=== PATIENT | male | born 1975 ===

== ENCOUNTER 2018-05-11 01:17 | Emergency (ER) | payer OTHER ==
[~2018-05-11] VITALS: Ht 177.8 cm; Wt 81.6 kg
[2018-05-11] MEDS ORDERED: NS IV 1000 ML 1,000 ML IV STA (01:33)
[2018-05-11] MEDS ORDERED: fentaNYL INJECTION 100 MCG/2 ML AMP IVP STA (01:33)
[2018-05-11 01:39] LABS: BASOPHILS % (AUTO) 0 % (0-10); EOSINOPHILS % (AUTO) 0 % (0-10); HEMATOCRIT 43 % (40-54); HEMOGLOBIN 15.5 G/DL (13.3-17.7); LYMPHOCYTES # (AUTO) 1.4 X 10^3 (1.0-4.0); LYMPHOCYTES % (AUTO) 13 % (12-44); MEAN CORPUSCULAR HEMOGLOBIN 31 PG (25-34); MEAN CORPUSCULAR HGB CONC 37 G/DL (32-36); MEAN CORPUSCULAR VOLUME 85 FL (80-99); MONOCYTES # (AUTO) 0.4 X 10^3 (0.0-1.0); MONOCYTES % (AUTO) 4 % (0-12); NEUTROPHILS # (AUTO) 9.4 X 10^3 (1.8-7.8); NEUTROPHILS % (AUTO) 84 % (42-75); PLATELET COUNT 223 10^3/uL (130-400); RED BLOOD COUNT 5.02 10^6/uL (4.35-5.85); RED CELL DISTRIBUTION WIDTH 13.6 % (10.0-14.5); WHITE BLOOD COUNT 11.3 10^3/uL (4.3-11.0)
--- NOTE | 2018-05-11 01:40 | ED Abdominal Pain ---
General Stated Complaint: ABD PAIN,VOMITING,SOB Source of Information: Patient Exam Limitations: No Limitations History of Present Illness Date Seen by Provider: May 11, 2018 Time Seen by Provider: 01:23 Initial Comments Acute onset of abdominal pain epigastric it is associated with nausea and vomiting. Onset about 6 hours ago. He feels a little short of breath or states that it hurts when he takes a deep breath. No report of blood in the vomit or stool. Denies diarrhea. Never had anything like this before. Onset after eating. Timing/Duration: 4-6 Hours Severity/Quality: Moderate Location: Epigastric Radiation: RUQ, LUQ Activities at Onset: None Modifying Factors: Worsens With Eating Associated Symptoms: No Back Pain, No Chest Pain, No Fever/Chills; Nausea/ Vomiting, Shortness of Air; No Swelling/Mass in Abdomen, No Weakness Allergies and Home Medications Allergies Coded Allergies: No Known Drug Allergies (Unverified , 05/11/18) Patient Home Medication List Home Medication List Reviewed: Yes Review of Systems Constitutional: see HPI; No chills, No fever EENTM: No Symptoms Reported Respiratory: See HPI; Denies Wheezing Cardiovascular: No Symptoms Reported Gastrointestinal: See HPI, Abdominal Pain; Denies Diarrhea; Vomiting Genitourinary: No Symptoms Reported Musculoskeletal: no symptoms reported Skin: no symptoms reported All Other Systems Reviewed Negative Unless Noted: Yes Past Qepbjdz-Psvwfk-Sjcaqf Hx Past Med/Social Hx: Reviewed Nursing Past Med/Soc Hx Patient Social History Alcohol Use: Denies Use Recreational Drug Use: No Smoking Status: Never a Smoker Recent Foreign Travel: No Contact w/Someone Who Travel: No Past Medical History Surgeries: No Respiratory: No Cardiac: No Neurological: No Genitourinary: No Gastrointestinal: No Musculoskeletal: No Endocrine: No Family Medical History Reviewed Nursing Family Hx No Pertinent Family Hx Physical Exam Vital Signs Vital Signs - First Documented 05/11/18 01:38 Temp 97.7 Pulse 68 Resp 20 B/P (MAP) 144/93 (110) Pulse Ox 97 O2 Delivery Nasal Cannula Capillary Refill : Height/Weight/BMI Height: '" Weight: lbs. oz. kg; BMI Method: General Appearance: WD/WN, no apparent distress HEENT: PERRL/EOMI, pharynx normal Neck: full range of motion, supple Respiratory: lungs clear, normal breath sounds Cardiovascular: regular rate, rhythm, no murmur Gastrointestinal: normal bowel sounds, soft; No guarding, No rebound; tenderness (epigastric) Extremities: non-tender, normal inspection Back: normal inspection, no CVA tenderness, no vertebral tenderness Neurologic/Psychiatric: alert, oriented x 3 Skin: normal color, warm/dry Progress/Results/Core Measures Results/Orders Lab Results Laboratory Tests Test 05/11/18 01:30 05/11/18 02:22 Range/Units White Blood Count 11.3 H 4.3-11.0 10^3/uL Red Blood Count 5.02 4.35-5.85 10^6/uL Hemoglobin 15.5 13.3-17.7 G/DL Hematocrit 43 40-54 % Mean Corpuscular Volume 85 80-99 FL Mean Corpuscular Hemoglobin 31 25-34 PG Mean Corpuscular Hemoglobin Concent 37 H 32-36 G/DL Red Cell Distribution Width 13.6 10.0-14.5 % Platelet Count 223 130-400 10^3/uL Mean Platelet Volume 10.0 7.4-10.4 FL Neutrophils (%) (Auto) 84 H 42-75 % Lymphocytes (%) (Auto) 13 12-44 % Monocytes (%) (Auto) 4 0-12 % Eosinophils (%) (Auto) 0 0-10 % Basophils (%) (Auto) 0 0-10 % Neutrophils # (Auto) 9.4 H 1.8-7.8 X 10^3 Lymphocytes # (Auto) 1.4 1.0-4.0 X 10^3 Monocytes # (Auto) 0.4 0.0-1.0 X 10^3 Eosinophils # (Auto) 0.0 0.0-0.3 10^3/uL Basophils # (Auto) 0.0 0.0-0.1 10^3/uL Sodium Level 140 135-145 MMOL/L Potassium Level 3.7 3.6-5.0 MMOL/L Chloride Level 107 98-107 MMOL/L Carbon Dioxide Level 21 21-32 MMOL/L Anion Gap 12 5-14 MMOL/L Blood Urea Nitrogen 13 7-18 MG/DL Creatinine 1.06 0.60-1.30 MG/DL Estimat Glomerular Filtration Rate > 60 BUN/Creatinine Ratio 12 Glucose Level 162 H 70-105 MG/DL Calcium Level 9.9 8.5-10.1 MG/DL Total Bilirubin 0.7 0.1-1.0 MG/DL Aspartate Amino Transf (AST/SGOT) 28 5-34 U/L Alanine Aminotransferase (ALT/SGPT) 58 H 0-55 U/L Alkaline Phosphatase 67 40-136 U/L C-Reactive Protein High Sensitivity 0.10 0.00-0.50 MG/DL Total Protein 8.1 6.4-8.2 GM/DL Albumin 4.8 H 3.2-4.5 GM/DL Amylase Level 91 25-125 U/L Lipase 28 8-78 U/L Urine Color YELLOW Urine Clarity CLEAR Urine pH 6.5 5-9 Urine Specific [place] 1.010 L 1.016-1.022 Urine Protein 2+ H NEGATIVE Urine Glucose (UA) NEGATIVE NEGATIVE Urine Ketones NEGATIVE NEGATIVE Urine Nitrite NEGATIVE NEGATIVE Urine Bilirubin NEGATIVE NEGATIVE Urine Urobilinogen NORMAL NORMAL MG/DL Urine Leukocyte Esterase NEGATIVE NEGATIVE Urine RBC (Auto) 1+ H NEGATIVE Urine RBC NONE /HPF Urine WBC NONE /HPF Urine Squamous Epithelial Cells RARE /HPF Urine Crystals NONE /LPF Urine Bacteria NEGATIVE /HPF Urine Casts NONE /LPF Urine Mucus NEGATIVE /LPF Urine Culture Indicated NO My Orders Orders - VANIA HDEZ MD Amylase (05/11/18 01:33) Cbc With Automated Diff (05/11/18 01:33) Comprehensive Metabolic Panel (05/11/18 01:33) Hs C Reactive Protein (05/11/18 01:33) Lipase (05/11/18 01:33) Ua Culture If Indicated (05/11/18 01:33) Ranitidine Injection (Zantac Injection) (05/11/18 01:45) Ns Iv 1000 Ml (Sodium Chloride 0.9%) (05/11/18 01:33) Saline Lock/Iv-Start (05/11/18 01:33) Ct Abdomen/Pelvis W (05/11/18 01:33) Fentanyl Injection (Sublimaze Injection (05/11/18 01:33) Iohexol Injection (Omnipaque 350 Mg/Ml 1 (05/11/18 02:00) Ns (Ivpb) (Sodium Chloride 0.9%) (05/11/18 02:00) Ketorolac Injection (Toradol Injection) (05/11/18 02:52) Lidocaine 2% Viscous 15 Ml (Xylocaine Vi (05/11/18 03:00) Antacid Suspension (Mylanta Suspension (05/11/18 03:00) Medications Given in ED Current Medications Medications Dose Ordered Sig/[place] Route Start Time Stop Time Status Last Admin Dose Admin Al Hydrox/Mg Hydrox/Simethicone 30 ml ONCE ONCE PO 05/11/18 03:00 05/11/18 03:01 DC 05/11/18 03:00 30 ML Iohexol 100 ml ONCE ONCE IV 05/11/18 02:00 05/11/18 02:01 DC 05/11/18 02:02 100 ML Lidocaine HCl 15 ml ONCE ONCE PO 05/11/18 03:00 05/11/18 03:01 DC 05/11/18 03:00 15 ML Ranitidine HCl 50 mg/Sodium Chloride 52 ml @ 100 mls/hr ONCE ONCE IV 05/11/18 01:45 05/11/18 02:16 DC 05/11/18 02:11 100 MLS/HR Sodium Chloride 250 ml ONCE ONCE IV 05/11/18 02:00 05/11/18 02:01 DC 05/11/18 02:02 80 ML Vital Signs/I&O 05/11/18 01:38 Temp 97.7 Pulse 68 Resp 20 B/P (MAP) 144/93 (110) Pulse Ox 97 O2 Delivery Nasal Cannula Progress Progress Note : Progress Note Seen and evaluated. IV, labs, UA, normal saline 1 L bolus, fentanyl 75 g IV and ranitidine [address] abdomen and pelvis with contrast ordered. Monitor patient. 0250: Pain continues. It is a little better though. GI cocktail and Toradol ordered. 0325: Pain is better. Feels like he could tolerate at home. Labs and CT do not indicate any significant findings currently. We will continue outpatient Pepcid and have him follow-up with the surgeon Dr. Kaufman or physician of his choice. Discharged home with return precautions. Patient verbalize understanding instructions and agreement with plan. Diagnostic Imaging Diagonstic Imaging: CT Plain Films/CT/US/NM/MRI: abdomen, c-spine Comments No evidence of bowel obstruction or focal intra-abdominal inflammatory process. Marking fatty attenuation of the liver. There is gallbladder distention but a normal common bile duct. Findings are of uncertain significance. There is no pericholecystic fluid noted. L5 spondylolysis. Small fat-containing left inguinal hernia. Per Teleradiology reading. Reviewed: Reviewed [place] Study Departure Impression Primary Impression: Epigastric abdominal pain Disposition: HOME, SELF-CARE Condition: Improved Departure-Patient Inst. Decision time for Depature: 03:32 Referrals: MARIA ESTHER KAUFMAN,LOCAL PHYSICIAN (PCP) Primary Care Physician Patient Instructions: Peptic Ulcers (DC), Acute Abdomen (Belly Pain), Adult (DC ) Add. Discharge Instructions: You may take Pepcid or the generic famotidine, 20 mg twice daily for the next week and then daily thereafter as needed to decrease pain. You may take Tylenol /acetaminophen 1000 mg every 8 hours as needed for pain. Follow-up with Dr. Kaufman or physician of your choice for recheck and further evaluation including possible upper endoscopy (scope) as indicated. Return for worse pain, fever, vomiting, weakness, breathing problems or other concerns as needed. Eat a light diet for the next several days and drink plenty of fluids. Copy Copies To 1: MARIA ESTHER KAUFMAN TIMOTHY D MD May 11, 2018 01:40
[2018-05-11] MEDS ORDERED: raNItidine INJECTION 50 MG in NS (IVPB) 50 ML IV ONE (01:45)
[2018-05-11 01:59] LABS: ALANINE AMINOTRANSFERASE 58 U/L (0-55); ALBUMIN 4.8 GM/DL (3.2-4.5); ALKALINE PHOSPHATASE 67 U/L (40-136); AMYLASE 91 U/L (25-125); BILIRUBIN,TOTAL 0.7 MG/DL (0.1-1.0); BUN/CREATININE RATIO 12; CALCIUM 9.9 MG/DL (8.5-10.1); CARBON DIOXIDE 21 MMOL/L (21-32); CHLORIDE 107 MMOL/L (98-107); CREATININE SERUM 1.06 MG/DL (0.60-1.30); GFR ESTIMATED > 60; GLUCOSE 162 MG/DL (70-105); LIPASE 28 U/L (8-78); POTASSIUM 3.7 MMOL/L (3.6-5.0); SODIUM 140 MMOL/L (135-145); TOTAL PROTEIN 8.1 GM/DL (6.4-8.2)
[2018-05-11] MEDS ORDERED: IOHEXOL 350 MG/ML 100 ML (OMNIPAQUE 350) VIAL IV ONE (02:00)
[2018-05-11] MEDS ORDERED: NS 250 ML (IVPB) BAG IV ONE (02:00)
[2018-05-11 02:37] LABS: BILIRUBIN,URINE NEGATIVE (NEGATIVE); CLARITY,URINE CLEAR; COLOR,URINE YELLOW; GLUCOSE, URINE (UA) NEGATIVE (NEGATIVE); KETONES,URINE NEGATIVE (NEGATIVE); LEUKOCYTE ESTERASE ,URINE NEGATIVE (NEGATIVE); NITRITE,URINE NEGATIVE (NEGATIVE); PH,URINE 6.5 (5-9); PROTEIN,URINE 2+ (NEGATIVE); UROBILINOGEN,URINE NORMAL (NORMAL)
[2018-05-11 02:50] LABS: BACTERIA,URINE NEGATIVE /HPF; SQUAMOUS EPITHELIAL CELL,UR RARE /HPF
[2018-05-11] MEDS ORDERED: KETOROLAC 30 MG/ML VIAL IVP STA (02:52)
[2018-05-11] MEDS ORDERED: LIDOCAINE 2% VISCOUS 15 ML UDC PO ONE (03:00)
[2018-05-11] MEDS ORDERED: ANTACID SUSP 30 ML UDC (MYLANTA) PO ONE (03:00)
[2018-05-11 03:34] VITALS: BP 144/93
--- NOTE | 2018-05-11 07:00 | Diagnostic Imaging Report ---
PROCEDURE: CT abdomen and pelvis with contrast. TECHNIQUE: Multiple contiguous axial images were obtained through the abdomen and pelvis after administration of intravenous contrast. INDICATION: Abdominal pain. Nausea and vomiting COMPARISON: None FINDINGS: Included portions of the lung bases are clear. CT abdomen: There is mild to moderate distention of the gallbladder. Gallbladder measures approximately 4.7 cm in diameter. No intraluminal filling defects are seen, but please note, CT is suboptimal to assess for cholelithiasis. There is no gallbladder wall thickening or pericholecystic free fluid. Small bowel loops are nondistended. Normal appendix cannot be adequately identified, but there is no pericecal inflammation. Note is made of moderate amount of fecalized stool within the distal and terminal ileum. Small bowel loops are otherwise nondistended. Liver is diffusely hypodense on this postcontrast exam. No focal hepatic mass type lesions are seen. The kidneys, adrenal glands, spleen, and pancreas have a normal CT appearance. There is no loculated fluid collection, free fluid, nor free air within the abdomen. No abnormal mesenteric or retroperitoneal adenopathy is seen. Bony structures show no acute abnormalities. CT pelvis: Urinary bladder is grossly unremarkable. There is no loculated fluid collection, free fluid, nor free air within the pelvis. No abnormal lymph nodes are identified. Small fat containing left inguinal hernia is identified. Bony structures show no acute abnormalities. 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 IMPRESSION: 1. Mild to moderate distention of the gallbladder. Again, CT is suboptimal to assess for cholelithiasis, but there is no CT evidence of acute cholecystitis. If there is concern for gallbladder obstruction, HIDA scan is recommended. 2. A moderate amount fecalized stool within the distal and terminal ileum. Findings are nonspecific, and can be seen with delayed transit. Otherwise, no small bowel obstruction. 3. Hepatic steatosis. Dictated by: Dictated on workstation # [id number]
--- OUTSIDE RECORDS SUMMARY | 2018-05-12 03:12 | XMS REPORT ---
Author Author COLLEEN NUNEZ Organization [facility] [place] Address [address] [place] [address] Care Team Providers Care Director International Name Role Phone ENRIQUEOTISCOLLEEN Unavailable PROBLEMS Unknown Problems ALLERGIES No Known Allergies ENCOUNTERS Encounter Location Date Diagnosis [facility] [place] [id number] [place] [phone] Nov, Herpes zoster without complication B02.9 [facility] [address] [place] [id number] Oct, Dental examination Z01.20 [facility] [id number] [place] [id number] Sep, Encounter for dental examination Z01.20 [facility] [address] [place] [id number] Mar, Dental examination V72.2 IMMUNIZATIONS No Known Immunizations SOCIAL HISTORY Never Assessed REASON FOR VISIT shoulder rash to right posterior shoulder, started on Monday. States is painful when clothing is touching area. States was helping friend move storage unit, noticed lots of spiders in unit. maddie hobbs PLAN OF CARE Activity Details Follow Up 3 Weeks Reason:est care VITAL SIGNS Height 68 in 2017-12-04 Weight 193.6 lbs 2017-12-04 Temperature 97.2 degrees Fahrenheit 2017-12-04 Heart Rate 84 bpm 2017-12-04 Respiratory Rate 20 2017-12-04 BMI 29.43 kg/m2 2017-12-04 Blood pressure systolic 126 mmHg 2017-12-04 Blood pressure diastolic 74 mmHg 2017-12-04 MEDICATIONS Medication Instructions Dosage Frequency Start Date End Date Duration Status Tramadol HCl 50 mg Orally 3 times a day 1 tablet as needed 8h Nov, Dec, 14 days Active Gabapentin 100 mg Orally Three times a day 1 capsule 8h Nov, 30 day(s) Active Famciclovir 500 mg Orally 3 times a day 1 tablet 8h Nov, Dec, 10 day(s) Active RESULTS No Results PROCEDURES No Known procedures INSTRUCTIONS MEDICATIONS ADMINISTERED No Known Medications
--- OUTSIDE RECORDS SUMMARY | 2018-05-12 03:12 | XMS REPORT ---
Author Author VERONICA COLE Organization [employer] Address Unknown Phone Unavailable Care Team Providers Care Commercial Sales Representative Name Role Phone VERONICA COLE CP Unavailable Allergies, Adverse Reactions, Alerts Substance Reaction Event Type N.K.D.A. Info Not Available Non Drug Allergy Problems Problem Type Condition Code Onset Dates Condition Status Assessment Encounter for dental examination Z01.20 Active Medications No Known Medications Procedures Procedure Coding System Code Date PROPHYLAXIS - ADULT CPT-4 D1110 Sep 30, 2015 PERIODIC ORAL EXAMINATION CPT-4 D0120 Sep 30, 2015 Vital Signs Date/Time: Sep 30, 2015 Blood Pressure Diastolic 76 mmHg Blood Pressure Systolic 120 mmHg Results No Known Results Summary Purpose [employer] Submission
--- OUTSIDE RECORDS SUMMARY | 2018-05-12 03:12 | XMS REPORT ---
Author Author SUNDAY Guadalupe [facility] Address Unknown Care Team Providers Care Account Development Executive Name Role Phone SUNDAY Guadalupe Unavailable PROBLEMS Unknown Problems ALLERGIES Substance Reaction Event Type Date Status N.K.D.A. Unknown Non Drug Allergy Oct, Unknown SOCIAL HISTORY No smoking Hx information available PLAN OF CARE Activity Details Follow Up prn Reason:sacha/hygiene VITAL SIGNS Blood pressure systolic 132 mmHg 2016-10-19 Blood pressure diastolic 84 mmHg 2016-10-19 MEDICATIONS No Known Medications RESULTS No Results PROCEDURES Procedure Date Ordered Related Diagnosis Body Site LTD ORAL EVALUATION - PROBLEM FOCUS Oct 19, 2016 BITEWINGS - TWO FILMS Oct 19, 2016 RESIN COMPOS - 2 SURFACES POSTERIOR Oct 19, 2016 IMMUNIZATIONS No Known Immunizations
== END 2018-05-11 03:38 | disposition home or self-care (01) ==
LOC: ER 01:22
DX: R10.13 Epigastric pain (principal)
CPT/HCPCS: 36415; 74177; 80053; 81000; 82150; 83690; 85025; 86141; 96361; 96374; 96375